=== PATIENT | male | born 1955 | race Caucasian/White ===

== ENCOUNTER 2024-08-31 07:13 | Day surgery (SDC) | payer BC, MEDICARE ==
[2024-08-31] VITALS (10 sets, daily range): BP systolic 122–155; BP diastolic 59–90; PULSE 56–69; RESP 16–18; TEMP 97.9; O2SAT 92–95
[~2024-08-31] VITALS: Ht 182.9 cm; Wt 107.0 kg
[2024-08-31] MEDS ORDERED: sodium bicarbonate 1meq/ml syr 150 ML in dextrose 5%-water 1,000 ML IV ONE (07:45)
[2024-08-31] MEDS ORDERED: ATOR40TA72 PO (07:57)
[2024-08-31] MEDS ORDERED: AMLO10TA13 PO (07:57)
[2024-08-31] MEDS ORDERED: FLUT1BLS16 INH (07:57)
[2024-08-31] MEDS ORDERED: LISI20TA28 PO (07:57)
[2024-08-31] MEDS: normal saline 1,000 ML IV SCH (08:29)
[2024-08-31] MEDS: sodium bicarbonate 1meq/ml syr 150 ML in dextrose 5%-water 1,000 ML IV ONE (08:29)
[2024-08-31 08:31] LABS: BASOPHILS % (AUTO) 0.6 % (0-1); EOSINOPHILS # (AUTO) 0.1 X10'3 (0-0.9); EOSINOPHILS % (AUTO) 2.6 % (0-6); HEMATOCRIT 44.2 % (42.0-52.0); HEMOGLOBIN 14.8 g/dl (14.0-17.9); LYMPHOCYTES # (AUTO) 1.2 X10'3 (1.1-4.8); LYMPHOCYTES % (AUTO) 21.6 % (21-51); MEAN CORPUSCULAR HEMOGLOBIN 31.4 PG (27.0-31.0); MEAN CORPUSCULAR HGB CONC 33.4 g/dL (33.0-36.5); MEAN CORPUSCULAR VOLUME 93.8 FL (78-98); MEAN PLATELET VOLUME 8.3 FL (7.4-10.4); MONOCYTES # (AUTO) 0.6 X10'3 (0-0.9); MONOCYTES % (AUTO) 10.3 % (2-12); NEUTROPHILS # (AUTO) 3.6 X10'3 (1.8-7.7); NEUTROPHILS % (AUTO) 64.9 % (42-75); PLATELET COUNT 220 X10'3 (140-440); RED BLOOD COUNT 4.71 X10'6 (4.70-6.10); RED CELL DISTRIBUTION WIDTH 14.5 % (11.5-14.5); WHITE BLOOD COUNT 5.6 X10'3 (4.5-11.0)
[2024-08-31 08:44] LABS: PROTHROMBIN TIME 10.7 SECONDS (9.0-12.0)
[2024-08-31 08:51] LABS: ALBUMIN 3.8 G/DL (3.4-5.0); ANION GAP 10 (8-16); BLOOD UREA NITROGEN 20 MG/DL (7-18); BUN/CREATININE RATIO 21.7 (10.0-20.0); CALCIUM 8.4 MG/DL (8.5-10.1); CHLORIDE 103 MMOL/L (99-107); CREATININE 0.92 MG/DL (0.60-1.10); GLUCOSE 107 MG/DL (70-104); POTASSIUM 4.2 MMOL/L (3.5-5.1); SODIUM 137 MMOL/L (135-145); eCRCL 86 ML/MIN; eGFR 82 ML/MIN
[2024-08-31] MEDS: diphenhydrAMINE 25mg capsule PO PRN (10:30)
[2024-08-31] MEDS ORDERED: midazolam 1 mg/ML 2ml injection ONE ×5 (11:30→12:29)
[2024-08-31] MEDS ORDERED: iohexol 350MG/ML 100ml bottle IV ONE (11:30)
[2024-08-31] MEDS ORDERED: fentaNYL/PF 50MCG/1 ML 2ML syringe ONE (11:30)
[2024-08-31] MEDS ORDERED: LIDOcaine 1% 30ml preserv. free vial ONE (11:30)
[2024-08-31] MEDS ORDERED: heparin 1,000unit/ml 10ml vial 10 ML ONE (11:30)
== END 2024-08-31 16:00 | disposition home or self-care (01) ==
LOC: SSTAY O 07:13
PROVIDERS: ATTEND Internal Medicine Cardiovascular Disease
DX: I10 Essential (primary) hypertension (principal); Z79.01 Long term (current) use of anticoagulants; Z79.899 Other long term (current) drug therapy; J44.9 Chronic obstructive pulmonary disease, unspecified; E78.5 Hyperlipidemia, unspecified; Z82.49 Family history of ischemic heart disease and other diseases of the circulatory system; Z98.890 Other specified postprocedural states
CPT/HCPCS: 36252; 80048; 83735; 85025; 85610; 93005; 99152; 99153; J1644; J2250; J3010; J3490; J7030; J7070; Q0163; Q9967; A6258; C1760; C1894